=== PATIENT | female | born 1970 | race Caucasian/White ===

== ENCOUNTER 2020-10-26 14:55 | Emergency (ER) | payer BC, OTHER ==
[~2020-10-26 14:55] MED LIST: ADIPEX-P37.5 M1 PO; ALBUTEROL2.5 MG/3 M INH; CALCIUM 600 +1 EAC7 PO; CETIRIZINE HCL10 MG PO; CLARITIN 10MG T10 MG PO; FOLIC ACID 1 MG1 MG PO; FOLIC ACID PO; IBU800 MG PO; IBUPROFEN600 MG PO; KEFLEX500 MG PO; KLONOPIN1 MG PO; LEFLUNOMIDE20 MG PO; LIPITOR TAB 1010 MG PO; LISINOPRIL-HCT1 EAC2 PO; LISINOPRIL10 MG PO; LODINE CAP 300300 MG PO; LYRICA100 MG PO; METHOCARBAMOL500 MG PO; METHOTREXATE2.5 MG PO; NORCO 10-325 T1 EACH PO; NORCO 5-325 TA1 EACH PO; OMEPRAZOLE40 MG PO; OMNICEF 300 MG300 MG PO; PREDNISONE10 MG PO; PREDNISONE20 MG PO; PROVENTIL HFA6.7 GM INH; SINGULAIR10 MG PO; TAMIFLU75 MG PO; TRAZODONE HCL100 MG PO; VITAMIN C500 M1 PO; VITAMIN D PO; XELJANZ PO; ZITHROMAX500 MG PO; ZOFRAN ODT 4 MG4 MG PO; [UNRECOGNIZED DRUG - OTHER]
[2020-10-26] MEDS ORDERED: CYCLOBENZAPRINE10 MG PO (18:01)
== END 2020-10-26 18:45 | disposition home or self-care (01) ==
LOC: ER1 14:55
DX: S46.912A Strain of unspecified muscle, fascia and tendon at shoulder and upper arm level, left arm, initial encounter (principal); S20.211A Contusion of right front wall of thorax, initial encounter; M06.9 Rheumatoid arthritis, unspecified; F17.210 Nicotine dependence, cigarettes, uncomplicated; Z88.8 Allergy status to other drugs, medicaments and biological substances; W19.XXXA Unspecified fall, initial encounter; Y92.009 Unspecified place in unspecified non-institutional (private) residence as the place of occurrence of the external cause
CPT/HCPCS: 71111; 96372; 99283; J1885

== ENCOUNTER 2020-11-02 18:20 | Emergency (ER) | payer BC, OTHER ==
[~2020-11-02 18:20] MED LIST changes: +CYCLOBENZAPRINE10 MG PO
[2020-11-02] MEDS ORDERED: HYDROCODON-ACE1 EAC4 PO (19:26)
[2020-11-02] MEDS ORDERED: NAPROXEN500 MG PO (19:30)
[2020-11-02] MEDS ORDERED: NORFLEX 100 MG100 MG PO (19:30)
== END 2020-11-02 19:55 | disposition home or self-care (01) ==
LOC: ER1 18:20
DX: Z87.81 Personal history of (healed) traumatic fracture (principal); M19.90 Unspecified osteoarthritis, unspecified site; Z90.710 Acquired absence of both cervix and uterus; F17.210 Nicotine dependence, cigarettes, uncomplicated
CPT/HCPCS: 71045; 99283

== ENCOUNTER 2021-02-08 12:02 | Emergency (ER) | payer BC, OTHER ==
[~2021-02-08 12:02] MED LIST changes: +HYDROCODON-ACE1 EAC4 PO; +NAPROXEN500 MG PO; +NORFLEX 100 MG100 MG PO
== END 2021-02-08 15:47 | disposition home or self-care (01) ==
LOC: ER1 12:02
DX: J02.9 Acute pharyngitis, unspecified (principal); F17.200 Nicotine dependence, unspecified, uncomplicated; Z90.49 Acquired absence of other specified parts of digestive tract; Z90.710 Acquired absence of both cervix and uterus
CPT/HCPCS: 87081; 87880; 99283

== ENCOUNTER 2021-02-15 12:42 | Emergency (ER) | payer BC, OTHER ==
[~2021-02-15] VITALS: Ht 160 cm; Wt 79.4 kg
[2021-02-15 13:21] LABS: HEMOGLOBIN 12.7 gm/dl (12.3-15.3); RED BLOOD COUNT 4.8 M/UL (4.00-5.10); WHITE BLOOD COUNT 9.8 K/UL (4.5-11.0)
[2021-02-15 13:37] LABS: BUN/CREATININE RATIO 20 (0-10)
[2021-02-15] MEDS ORDERED: PROAIR HFA8.5 GM INH (16:49)
[2021-02-15] MEDS ORDERED: IBUPROFEN800 MG PO (16:49)
[2021-02-15] MEDS ORDERED: MUCINEX1200 MG PO (16:49)
== END 2021-02-15 19:00 | disposition home or self-care (01) ==
LOC: ER1 12:42
PROVIDERS: Physician Assistant
DX: U07.1 COVID-19 (principal); J12.82 Pneumonia due to coronavirus disease 2019; R74.9 Abnormal serum enzyme level, unspecified; I10 Essential (primary) hypertension; F17.200 Nicotine dependence, unspecified, uncomplicated; Z90.710 Acquired absence of both cervix and uterus
CPT/HCPCS: 71045; 80053; 82550; 82553; 83874; 84484; 85025; 85379; 87081; 87880; 93005; 96374; 99285; J1885; Q9967; U0002

== ENCOUNTER 2021-03-06 16:44 | Emergency (ER) | payer BC, OTHER ==
[~2021-03-06 16:44] MED LIST changes: +IBUPROFEN800 MG PO; +MUCINEX1200 MG PO; +PROAIR HFA8.5 GM INH
[2021-03-06 17:44] LABS: RED BLOOD COUNT 4.64 M/UL (4.00-5.10); WHITE BLOOD COUNT 8.4 K/UL (4.5-11.0)
[2021-03-06 18:09] LABS: BUN/CREATININE RATIO 18 (0-10)
[2021-03-06] MEDS ORDERED: ZOFRAN ODT 4 MG4 MG PO (21:13)
== END 2021-03-06 21:45 | disposition home or self-care (01) ==
LOC: ER1 16:44
PROVIDERS: Physician Assistant Medical
DX: R10.9 Unspecified abdominal pain (principal)
CPT/HCPCS: 80053; 81001; 83690; 85025; 96374; 99284; Q9967

== ENCOUNTER 2021-04-16 15:56 | Emergency (ER) | payer BC, OTHER ==
[2021-04-16 16:45] LABS: RED BLOOD COUNT 4.58 M/UL (4.00-5.10); WHITE BLOOD COUNT 8.5 K/UL (4.5-11.0)
[2021-04-16 17:13] LABS: BUN/CREATININE RATIO 24 (0-10)
== END 2021-04-16 18:28 | disposition home or self-care (01) ==
LOC: ER1 15:56
PROVIDERS: Emergency Medicine
DX: R10.9 Unspecified abdominal pain (principal); R10.819 Abdominal tenderness, unspecified site; F17.200 Nicotine dependence, unspecified, uncomplicated; Z90.710 Acquired absence of both cervix and uterus
CPT/HCPCS: 80053; 81001; 83605; 83690; 85025; 87040; 96374; 96375; 96376; 99284; J2270; J2405; J7030; Q9967

== ENCOUNTER 2021-07-07 09:38 | Emergency (ER) | payer BC, OTHER | END 2021-07-07 10:18 | disposition home or self-care (01) | LOC: ER1 09:38 | DX: R51.9 Headache, unspecified (principal); R53.83 Other fatigue; F17.200 Nicotine dependence, unspecified, uncomplicated; Z90.710 Acquired absence of both cervix and uterus; Z20.822 Contact with and (suspected) exposure to COVID-19 | CPT/HCPCS: 99283; U0003 ==

== ENCOUNTER 2021-10-21 07:55 | Emergency (ER) | payer OTHER ==
[2021-10-21 08:51] LABS: HEMOGLOBIN 13.2 gm/dl (12.3-15.3); RED BLOOD COUNT 4.74 M/UL (4.00-5.10); WHITE BLOOD COUNT 8.9 K/UL (4.5-11.0)
[2021-10-21 09:10] LABS: BUN/CREATININE RATIO 15 (0-10)
[2021-10-21] MEDS ORDERED: ZOFRAN 4 MG TAB4 MG PO (09:45)
== END 2021-10-21 09:56 | disposition home or self-care (01) ==
LOC: ER1 07:55
PROVIDERS: Physician Assistant
DX: M79.10 Myalgia, unspecified site (principal); R51.9 Headache, unspecified; R11.2 Nausea with vomiting, unspecified; Z20.822 Contact with and (suspected) exposure to COVID-19
CPT/HCPCS: 0240U; 80053; 81001; 85025; 96374; 99284; J2405; J7030